=== PATIENT | male | born 1995 | race Caucasian/White ===

== ENCOUNTER 2017-01-21 16:21 | Emergency (ER) | payer OTHER ==
[~2017-01-21] VITALS: Ht 182.9 cm; Wt 111.7 kg
[2017-01-21 16:23] VITALS: TEMP 36.6; Ht 182.9 cm; Wt 111.7 kg
[2017-01-21] MEDS ORDERED: CETI10TA84 PO (16:40)
[2017-01-21] MEDS ORDERED: FLUT0.15 NAE (16:40)
--- NOTE | 2017-01-21 17:04 | EMERGENCY ROOM VISIT NOTE ---
History First contact with patient: 16:27 Chief Complaint: BACK INJURY Stated Complaint: BACK PAIN History of Present Illness The patient is a 21 year old male who presents to the Emergency Room via private vehicle with complaints of "back pain". The patient states that earlier today he was in the gym, performing a lift, and felt the left SI joint cracked, and then a shooting pain down his left leg. He notes a dull ache in the low back now. He rates his pain as a 5/10. He is taken ibuprofen with minimal relief. He was able to ambulate into the ED. He denies any lower extremity weakness, bowel or bladder incontinence, numbness or tingling in genital region. He denies any fevers or chills. He denies abdominal pain. He denies any radicular pain at this time. Review of Systems A complete 6-point Review of Systems was discussed with the patient, with pertinent positives and negatives listed in the History of Present Illness. All remaining Review of Systems questions can be considered negative unless otherwise specified. Past Medical/Surgical History Unremarkable Family History Unremarkable. Social History Smoking Status: Never Smoker Social History: Patient lives with girlfriend. Current/Historical Medications Scheduled Cetirizine (Zyrtec), 10 MG PO DAILY Cyclobenzaprine Hcl (Flexeril), 1 TAB PO TID Fluticasone Propionate (Nasal) (Flonase Allergy Relief), 2 SPRAY GISELE DAILY Scheduled PRN Oxycodone Ir (Roxicodone Ir), 1-2 TAB PO Q6 PRN for Pain Allergies Coded Allergies: No Known Allergies (Unverified , 01/21/17) Physical Exam Vital Signs Date Time Temp Pulse Resp B/P Pulse Ox O2 Delivery O2 Flow Rate FiO2 01/21/17 18:12 76 16 143/83 98 01/21/17 17:15 67 16 144/73 96 Room Air 01/21/17 16:23 36.6 88 20 98 Room Air Physical Exam VITAL SIGNS - Vital signs and nursing notes were reviewed. Patient is afebrile , nontoxic tachycardic and is saturating well on room air 98% GENERAL -21-year-old male appearing his stated age who is in no acute distress. Communicates well with provider and answers questions appropriately. SKIN - Without rashes. Skin overlying the lumbar spine is unremarkable. LUNGS - Chest wall symmetric without accessory muscle use, intercostals retractions, or central cyanosis. Normal vesicular breath sounds CTA B/L. No wheezes, rales, or rhonchi appreciated. CARDIAC - RRR with S1/S2. No murmur, rubs, or gallops appreciated. ABDOMEN - Abdominal contour without pulsations or visible masses. BS normoactive all four quadrants. No tenderness, palpable masses, hepatosplenomegaly, or ascites noted. MUSCULOSKELETAL: No reproducible tenderness to palpation overlying the spine or gluteal region or hips. EXTREMITIES - No clubbing or peripheral cyanosis. No pretibial edema present. Neurovascular intact in lower extremity. +5/5 strength noted in UE/LE bilaterally. Negative straight leg raise. NEUROLOGIC - Cranial nerves II through XII grossly intact. Sensory intact to light touch throughout. Patellar reflexes +2/4. Medical Decision & Procedures ER Provider Diagnostic Interpretation: LUMBAR SPINE 5 VIEWS CLINICAL HISTORY: Left pelvic pain. FINDINGS: 5 views of the lumbar spine are obtained. No prior studies are available for comparison at the time of dictation. The skeletal structures are well mineralized. There is no radiographic evidence of fracture or malalignment. Vertebral body height and alignment are maintained. The transverse and spinous processes are intact. There is no evidence of spondylolysis. The intervertebral disc spaces are well-maintained. The visualized bony pelvis appears intact. There is a nonobstructed abdominal bowel gas pattern. IMPRESSION: Unremarkable radiographic evaluation of the lumbosacral spine. Electronically signed by: Adi Lin M.D. 01/21/2017 5:22 PM Dictated Date/Time: 01/21/2017 5:21 PM SINGLE VIEW PELVIS CLINICAL HISTORY: Left sacroiliac joint pain. Lifting injury. FINDINGS: 2 AP views of the pelvis are obtained. No prior studies are available for comparison at the time of dictation. The skeletal structures are well mineralized. There is no radiographic evidence of fracture in the hips or bony pelvis. The sacroiliac joints are normal and symmetric. The hip joints are well-maintained. The overlying soft tissues are within normal limits. There is a nonobstructed abdominal bowel gas pattern. IMPRESSION: Unremarkable radiographic assessment of the pelvis. Electronically signed by: Adi Lin M.D. 01/21/2017 5:30 PM Dictated Date/Time: 01/21/2017 5:26 PM Medications Administered Medications (Trade) Dose Ordered Sig/Alis Route Start Time Stop Time Status Last Admin Dose Admin Oxycodone HCl (Roxicodone Immediate Rel 5MG Home Pack) 1 homepack UD STAT PO 01/21/17 17:46 01/21/17 17:48 DC 01/21/17 18:07 1 HOMEPACK Cyclobenzaprine HCl (FLEXERIL 10MG Home Pack) 1 homepa UD STAT PO 01/21/17 17:46 01/21/17 17:48 DC 01/21/17 18:07 1 [facility] Medical Decision Patient was seen and evaluated as above. After obtaining a thorough history and physical examination radiographs are obtained of the lumbar spine and pelvis. No evidence of deformity on examination. No evidence of cauda equina syndrome. Patient has pain status post lifting, with radiation of pain down his left leg initially. No evidence of cauda equina on physical examination either. Patient is able to ambulate and stand without difficulty. I do believe that radiographs are warranted at this time. Results as above. No evidence of dislocation or bony malalignment. No fracture. Definitive versus risk of obtaining an MRI was discussed with the patient, and I do not believe that it is warranted at this time. Discussion was had regarding conservative management. Patient will be provided with OxyIR as well as Flexeril for his pain a potential muscle spasms. He was instructed to follow-up with [facility] regarding this finding. He was educated upon worrisome symptoms which to return, had questions prior to discharge, and was discharged home in good condition. In evaluation treatment this patient the following differential diagnoses were entertained: Herniated disc, SI joint dislocation, fracture, malalignment, AAA, among others. [place] Drug Monitoring Program Search Results: patient reviewed within database, no issues identified Impression Primary Impression: Low back pain Departure Information Dispostion Home / Self-Care Condition GOOD Prescriptions Oxycodone Ir (Roxicodone Ir) 5 Mg Tab 1-2 TAB PO Q6 Y for Pain, #15 TAB For Initial Treatment Prov: Pramod Taylor PA-C 01/21/17 Cyclobenzaprine Hcl (FLEXERIL) 10 Mg Tab 1 TAB PO TID for 7 Days, #21 TAB Prov: Pramod Taylor PA-C 01/21/17 Referrals No Doctor, Assigned (PCP) Patient Instructions My [facility] Additional Instructions You have been treated in the Emergency Department for Back Pain. You have been prescribed OXY IR to be used for pain control. This is a narcotic medication. You cannot drive or consume alcohol while on this medicine. This medicine should only be used for pain that cannot be controlled with over-the- counter pain medicines. You have been prescribed Flexeril (cyclobenzaprine) 1-2 tabs orally, three times per day. Do NOT exceed 30 mg (6 tabs) per day. Take your first dose at bedtime as it can make you drowsy. Always take all medications as prescribed. For pain control, you can use the following [id number] medicines (if >12 yo): - Regular strength (325mg/tab) Tylenol (acetaminophen) 2 tabs every 4-6 hours as needed. Do not exceed 12 tablets in a 24 hour period. Avoid taking more than 3 grams (3000 mg) of Tylenol per day. This includes any other sources of acetaminophen you may take on a regular basis. - Regular strength (200 mg/tab) Advil (ibuprofen) 1-2 tabs every 4-6 hours as needed. Do not exceed a dose of 3200 mg per day. If this is an acute injury, ice can be applied to the area of pain for the first 3 days to help decrease pain and inflammation. After the first 3 days, a heating pad can be used over the area for continued soothing relief. You should schedule a follow-up appointment in 2-3 days with your Primary Care Provider for further evaluation and treatment of your back pain. Return to the Emergency Department if your current symptoms worsen despite treatment course outlined above, or if you develop any of the following symptoms : intractable pain despite aforementioned treatment course, loss of control of your bowel or bladder, numbness or tingling in your groin, or development of a fever. Please return to emergency department with any new/concerning symptoms.
--- NOTE | 2017-01-21 17:24 | DIAGNOSTIC IMAGING REPORT ---
LUMBAR SPINE 5 VIEWS CLINICAL HISTORY: Left pelvic pain. FINDINGS: 5 views of the lumbar spine are obtained. No prior studies are available for comparison at the time of dictation. The skeletal structures are well mineralized. There is no radiographic evidence of fracture or malalignment. Vertebral body height and alignment are maintained. The transverse and spinous processes are intact. There is no evidence of spondylolysis. The intervertebral disc spaces are well-maintained. The visualized bony pelvis appears intact. There is a nonobstructed abdominal bowel gas pattern. IMPRESSION: Unremarkable radiographic evaluation of the lumbosacral spine. Electronically signed by: Adi Lin M.D. 01/21/2017 5:22 PM Dictated Date/Time: 01/21/2017 5:21 PM
--- NOTE | 2017-01-21 17:31 | DIAGNOSTIC IMAGING REPORT ---
SINGLE VIEW PELVIS CLINICAL HISTORY: Left sacroiliac joint pain. Lifting injury. FINDINGS: 2 AP views of the pelvis are obtained. No prior studies are available for comparison at the time of dictation. The skeletal structures are well mineralized. There is no radiographic evidence of fracture in the hips or bony pelvis. The sacroiliac joints are normal and symmetric. The hip joints are well-maintained. The overlying soft tissues are within normal limits. There is a nonobstructed abdominal bowel gas pattern. IMPRESSION: Unremarkable radiographic assessment of the pelvis. Electronically signed by: Adi Lin M.D. 01/21/2017 5:30 PM Dictated Date/Time: 01/21/2017 5:26 PM
[2017-01-21] MEDS ORDERED: CYCL10TA6 PO (17:43)
[2017-01-21] MEDS ORDERED: OXYC1TAB3 PO (17:43)
[2017-01-21] MEDS ORDERED: FLEXERIL HOME PACK 10 MG VIAL PO STA ×2 (17:46→17:51)
[2017-01-21] MEDS ORDERED: OXYCODONE IR HOME PACK PO STA ×2 (17:46→17:51)
[2017-01-21 18:12] VITALS: BP 143/83; PULSE 76; O2SAT 98
== END 2017-01-21 18:13 | disposition home or self-care (01) ==
LOC: C.EDB 16:22 → C.EDD 18:13
DX: M54.5 Low back pain (principal)